=== PATIENT | male | born 1950 | race Caucasian/White ===

== ENCOUNTER 2019-03-12 21:10 | Emergency (ER) | payer MEDICARE ==
[2019-03-12] MEDS ORDERED: Dexamethasone 4 MG/ML SDV IM ONE (22:07)
[2019-03-12] MEDS ORDERED: Cyclobenzaprine 10 MG Tab PO ONE (22:08)
--- NOTE | 2019-03-12 22:13 | EDM.PDOC ---
ED HPI GENERAL MEDICAL PROBLEM - General Chief Complaint: ENT Problem Stated Complaint: LEFT JAW PAIN Time Seen by Provider: 03/12/19 22:00 Source of Information: Reports: Patient - History of Present Illness INITIAL COMMENTS - FREE TEXT/NARRATIVE: Alert very pleasant 69 yo male presents to ER with left side jaw pain. Pain started last evening when he, his daughter and her significant other stopped for dinner diving up to [facility]. Patient took Ibuprofen 600mg which took the edge of the pain off. Patient felt fine this am and ate breakfast without any pain or concerns. Patient had recurrent left jaw pain this evening and attempted to eat dinner but unable to open mouth wider than 1-2 fingers due to severe pain. Patient denies fever, chest, lightheadedness, nausea,sweating or vomiting with jaw pain. Patient took Ibuprofen 600mg at 7:30 with no improvement of symptoms. Pain has become unbearable with any jaw movement. He denies cough or URI symptoms. Patient denies history of jaw injury or surgery. He denies dental pain. left jaw joint Pain Score (Numeric/FACES): 7 - Related Data Allergies Allergy/AdvReac Type Severity Reaction Status Date / Time No Known Allergies Allergy Verified 03/12/19 21:50 Home Meds: Home Meds Ibuprofen 800 mg PO Q6H PRN 20 Days #30 tablet 03/12/19 [Rx] Tamsulosin HCl [Flomax] 0.4 mg PO DAILY 03/12/19 [History] atorvaSTATin [Lipitor] 80 mg PO BEDTIME 03/12/19 [History] predniSONE [Prednisone] 20 mg PO BIDAC 5 Days #10 tablet 03/12/19 [Rx] Past Medical History Cardiovascular History: Reports: High Cholesterol Respiratory History: Reports: COPD Other Respiratory History: emphysema Musculoskeletal History: Reports: Arthritis Social & Family History - Family History Family Medical History: Noncontributory - Tobacco Use Smoking Status *Q: Former Smoker Years of Tobacco use: 50 Used Tobacco, but Quit: Yes Month/Year Tobacco Last Used: 06/2016 - Caffeine Use Caffeine Use: Reports: Coffee - Recreational Drug Use Recreational Drug Use: No ED ROS ENT - Review of Systems Review Of Systems: ROS reveals no pertinent complaints other than HPI. ED EXAM, ENT - Physical Exam Exam: See Below Exam Limited By: No Limitations General Appearance: Alert, WD/WN, Moderate Distress (due to left jaw pain) Eye Exam: Bilateral Eye: EOMI, PERRL Ears: Normal External Exam, Normal Canal, Hearing Grossly Normal, Normal TMs, Other (significant pain over left anterior auditry canal (TMJ joint) ). No: Canal Discharge, Canal Swelling Nose: Normal Inspection, Normal Mucousa Mouth/Throat: Normal Inspection, Normal Gums (dentures in place. Pain along upper gumline and masseter muscle. ), Normal Lips, Other (unable to open wound wider than 1-2 finger widths). No: Normal Teeth, Dental Pain, Oral Ulcers, Perioral Cyanosis Head: Normocephalic Neck: Normal Inspection, Supple, Non-Tender, Full Range of Motion Respiratory/Chest: No Respiratory Distress, Lungs Clear, No Accessory Muscle Use , Chest Non-Tender Cardiovascular: Normal Peripheral Pulses, Regular Rate, Rhythm Neurological: Alert, Oriented, CN II-XII Intact, Normal Cognition, Normal Gait, Normal Reflexes, No Motor/Sensory Deficits Psychiatric: Normal Affect, Normal Mood Skin: Warm, Dry, Intact, Normal Color, No Rash Course - Vital Signs Last Recorded V/S: Last Vital Signs Temp 36.8 C 03/12/19 21:24 Pulse 70 03/12/19 21:24 Resp 16 03/12/19 21:24 BP 159/97 H 03/12/19 21:24 Pulse Ox 96 03/12/19 21:24 - Orders/Labs/Meds Orders: Active Orders 24 hr Category Date Time Status Vital Signs [RC] PFP Care 03/12/19 23:15 Ordered Labs: Laboratory Tests 03/12/19 03/12/19 Range/Units 21:58 21:58 ESR 18 (0-20) mm/hr C-Reactive Protein 0.04 (0.0-0.3) mg/dL Meds: Medications Discontinued Medications Generic Name Dose Route Start Last Admin Trade Name Freq PRN Reason Stop Dose Admin Cyclobenzaprine HCl 10 mg 03/12/19 22:08 03/12/19 22:24 Flexeril PO 03/12/19 22:09 10 mg ONETIME ONE Administration Dexamethasone 10 mg 03/12/19 22:07 03/12/19 22:24 Dexamethasone IM 03/12/19 22:08 10 mg ONETIME ONE Administration Ibuprofen 800 mg 03/12/19 23:21 Motrin PO 03/12/19 23:22 ONETIME ONE - Re-Assessments/Exams Free Text/Narrative Re-Assessment/Exam: Patient updated regarding CRP and Sed Rate. Discussed Prednisone and Ibuprofen use. Prednisone sent to [facility] 10 mg tablets. Ibuprofen 800mg not available. Patient had not improvement with Flexeril and Decadron takes 6 hours to work. Patient would like Ibuprofen so 800mg tablets ordered to be taken 6 hours at 7: 30 pm dose with food at home. Prescription to be picked up at pharmacy tomorrow. 03/12/19 23:22 Departure - Departure Time of Disposition: 23:36 Disposition: Home, Self-Care 01 Clinical Impression: TMJ dysfunction, Jaw pain - Discharge Information Prescriptions: Ibuprofen 800 mg PO Q6H PRN 20 Days #30 tablet PRN Reason: inflammation predniSONE [Prednisone] 20 mg PO BIDAC 5 Days #10 tablet Instructions: Jaw Range of Motion Exercises, Temporal Arteritis, Temporomandibular Joint Syndrome Referrals: PCP,None [Primary Care Provider] - 3 Days Forms: ED Department Discharge Additional Instructions: 1. Soft foods x 3-5 days. 2. Prednisone 10mg every 2 tab am and 2 tab pm x 5 days with food. [facility] # 30 3. After 5 days of prednisone take, Ibuprofen 800mg every 6 hours with food for pain, swelling and inflammation. #1 given in ER and prescription written 4. Tylenol 500-1000mg every 6 hours for mild pain if needed. 5. Read information regarding TMJ dysfunction and Temporal arteritis. 6. Call PCP on Thursday for follow-up regarding ER visit. Call dentist of choice to help with jaw and TMJ concerns. 7. Consider warm compress 15-20 minutes and mouth guard to help prevent recurrence once improved. - Problem List & Annotations (1) TMJ dysfunction SNOMED Code(s): 75399303 Code(s): M26.609 - UNSPECIFIED TMJ JOINT DISORDER, UNSPECIFIED SIDE Status : Acute Current Visit: Yes - My Orders Last 24 Hours: My Active Orders 03/12/19 23:15 Vital Signs [RC] PFP - Assessment/Plan Last 24 Hours: My Active Orders 03/12/19 23:15 Vital Signs [RC] PFP
[2019-03-12] MEDS ORDERED: Ibuprofen 800 MG Tab PO ONE (23:21)
== END 2019-03-12 23:45 | disposition home or self-care (01) ==
LOC: JP.ED 21:10
DX: M26.602 Left temporomandibular joint disorder, unspecified (principal); J43.9 Emphysema, unspecified; E78.5 Hyperlipidemia, unspecified; Z87.891 Personal history of nicotine dependence
CPT/HCPCS: 36415; 85651; 86140; 96372; 99283; A9270; J1100